=== PATIENT | male | born 1955 | race Caucasian/White ===

== ENCOUNTER → 2021-04-28 | Outpatient (CLI) | payer MEDICARE, OTHER ==
[~2021-04-28] MED LIST: ADULT LOW DOSE81 MG; CARVEDILOL25 MG; CRESTOR; CYMBALTA20 MG; FLEXERIL PO; GLIPIZIDE ER5 MG PO; GLUCOPHAGE1000 MG PO; LISINOPRIL20 MG; NIASPAN ER 101000 M1; PLAVIX 75 MG TA75 MG; ULTRAM 50MG TAB50 MG PO; ZOCOR
== END ==
LOC: M.LAB 10:48
PROVIDERS: ATTEND Internal Medicine Gastroenterology
DX: Z01.812 Encounter for preprocedural laboratory examination (principal); Z20.822 Contact with and (suspected) exposure to COVID-19